=== PATIENT | female | born 1985 | race Caucasian/White ===

== ENCOUNTER 2018-02-12 06:14 | Day surgery (SDC) | payer BC ==
[2018-02-07 08:50] VITALS: BMI 24.3
[2018-02-12] MEDS ORDERED: Lactated Ringer's 1,000 ML IV ONE (07:01)
--- NOTE | 2018-02-12 07:18 | CP.SDSHP ---
Same Day Surgery H & P - History Proposed Procedure: Hysteroscopy and polypectomy Pre-Op Diagnosis: cervical polyp and/or aborting fibroid - Allergies Allergies: Allergies No Known Allergies Allergy (Verified 02/11/18 10:36) - Physical Exam Vital Signs: Vital Signs 02/12/18 02/12/18 06:41 06:46 Temperature 97.4 F L Pulse Rate 59 L 72 Respiratory 20 Rate Blood Pressure 105/67 O2 Sat by Pulse 100 Oximetry Mental Status: Alert & Oriented x3 Heart: WNL Lungs: WNL - {Optional Preform as Required} Breast: WNL Abdomen: WNL HEAD ESTHETICIAN: WNL - Impression Pt. Evaluated Today:Candidate for Anesthesia & Procedure: Yes - Date & Time Date: 02/12/18 Time: 07:18 Short Stay Discharge - Short Stay Discharge Admitting Diagnosis/Reason for Visit: D25.9 Disposition: HOME/ ROUTINE Progress Note/Discharge Note with Instructions: Discharge home when meets floor criteria F/U in office in 1-2 wks
[2018-02-12] MEDS ORDERED: Oxycodone/Acetaminophen 5/325 mg Tab PO PRN (09:10)
[2018-02-12] MEDS ORDERED: Lactated Ringer's 1,000 ML IV SCH (09:30)
[2018-02-12 13:49] VITALS: BP 107/69; PULSE 66; RESP 18; TEMP 97.9; O2SAT 98
--- NOTE | 2018-02-14 23:25 | OP ---
PROCEDURE DATE: 02/12/2018 SURGEON: Alma Delia Clinton MD PREOPERATIVE DIAGNOSIS: Aborting cervical polyp or fibroid. POSTOPERATIVE DIAGNOSIS: Aborting cervical polyp. PROCEDURE: Operative hysteroscopy and polypectomy. ANESTHESIA: General. INTRAVENOUS FLUIDS: Input 700 mL, distention media in 5100 mL of normal saline, distention media out 500 mL of normal saline, distention media deficit 150 mL. ESTIMATED BLOOD LOSS: 20 mL. URINE OUTPUT: 50 mL, clear. SPECIMEN: Cervical polyps. COMPLICATIONS: None. FINDINGS: Examination under anesthesia reveals a normal-sized anteverted uterus with normal contour and about a 2 cm aborting cervical polyp at the cervical os. INDICATIONS: This is a 32-year-old nulliparous female who presented perioperative for a scheduled diagnostic hysteroscopy and polypectomy. The patient had irregular menstrual bleeding and was found on annual exam that she has what looked to be an aborting cervical polyp or aborting myoma. The patient was consented for risks and benefits for the procedure including risks of bleeding and perforation. The patient verbalized understanding and signed the informed consent. DESCRIPTION OF PROCEDURE: The patient was taken to the OR where general anesthesia was administered without difficulty. She was placed in a dorsal lithotomy position with candy-cane stirrups. Exam under anesthesia revealed a normal anteverted uterus of normal size and about a 2-cm aborting polyp or myoma at the cervical os. The patient was prepped and draped in a normal sterile fashion. A red rubber tip catheter was used to drain her bladder about 60 mL clear. Then, an insulated speculum was inserted. A single-tooth tenaculum was used to grasp the anterior lip of the cervix. Vicryl Endoloop was used to as of highest level manually possible in order to aid with cautery and removal of the polyp. The cervical polyp was excised with the aid of the cautery at the level of the Vicryl Endoloop knot. The patient was sequentially dilated to accommodate a 5-mm cystoscope using Hegar dilators, and then a 5-mm straight hysteroscope was introduced under direct visualization. The uterus was distended with normal saline. It was noted that the insertion for where the polyp was at the level of the internal os. The MyoSure device was used to resect the spot where the area still contained part of the polyp. There was minimal bleeding, which we cauterized with the Bovie. The hysteroscope also surveyed the cavity of the uterus, which appeared to have a normal anatomy. There were no other polyps noted in any other part of the endometrial cavity. The site was inspected again and found to be hemostatic. The hysteroscope was removed from the cavity. The tenaculum was removed from the cervix. All instruments were removed from the vagina. Good hemostasis was noted again beforehand before removing all instruments. The patient tolerated the procedure well. The instruments and sponge counts were correct x2. The patient was awakened from general anesthesia and taken to the recovery room. The patient is to follow up in the office in one to two weeks. There were no complications. Alma Delia Clinton MD
== END 2018-02-12 14:00 | disposition home or self-care (01) ==
LOC: H.OPSURG 06:14
PROVIDERS: ATTEND Obstetrics & Gynecology
DX: N84.1 Polyp of cervix uteri (principal); D25.9 Leiomyoma of uterus, unspecified; N92.6 Irregular menstruation, unspecified
CPT/HCPCS: 58558; 88305; J7030; J7120